=== PATIENT | female | born 1995 | race Hispanic/Latino ===

== ENCOUNTER → 2024-09-03 10:57 | Outpatient (REF) | payer OTHER, SELFPAY ==
[2024-09-03 12:32] LABS: Rubella Negative
[2024-09-05 06:00] LABS: Quantiferon Mitogen minus NIL 9.89 IU/mL; Quantiferon NIL 0.11 IU/mL; Quantiferon Plus TB2 minus NIL 0.01 IU/mL (<=0.34); Quantiferon TB Gold Plus Negative (Negative)
[2024-09-05 13:31] LABS: Mumps Virus IgG Negative; Varicella Zoster IgG (VZV) Negative
== END ==
LOC: OHS 10:57
PROVIDERS: ATTENDING PHYSICIAN Nurse Practitioner Family
DX: Z23 Encounter for immunization (principal)
CPT/HCPCS: 36415; 86480; 86735; 86762; 86765; 86787